=== PATIENT | male | born 1940 | race Caucasian/White ===

== ENCOUNTER 2016-12-13 14:42 | Emergency (ER) | payer MEDICARE, MEDICAID ==
[~2016-12-13] VITALS: Ht 177.8 cm; Wt 80.0 kg
[~2016-12-13 14:42] MED LIST: EYE DROP2; MIRALAX3350 N1 PO; NEXIUM20 M1 PO; PREVACID30 M1; SYNTHROID PO; VIAGRA25 MG PO
[2016-12-13] MEDS ORDERED: GLAUCOMA GTTS (15:06)
[2016-12-13] MEDS ORDERED: TRAMADOL HYDROC50 MG PO (15:33)
[2016-12-13] MEDS ORDERED: EC-NAPROSYN500 MG PO (15:33)
[2016-12-13 16:09] VITALS: BP 146/74
== END 2016-12-13 16:15 | disposition home or self-care (01) ==
LOC: ED 14:42
DX: M22.2X2 Patellofemoral disorders, left knee (principal); M25.562 Pain in left knee

== ENCOUNTER 2017-05-08 07:24 | Day surgery (SDC) | payer MEDICARE, MEDICAID ==
[~2017-05-08] VITALS: Ht 177.8 cm; Wt 79.8 kg
[~2017-05-08 07:24] MED LIST changes: +EC-NAPROSYN500 MG PO; -NEXIUM20 M1 PO; +NEXIUM40 M1 PO; +SAW PALMETTO450 MG PO; -SYNTHROID PO; +SYNTHROID100 MCG PO; +TRAMADOL HYDROC50 MG PO; +XALATAN0.005 % OD
[2017-05-08 11:58] VITALS: BP 182/82
== END 2017-05-08 11:35 | disposition home or self-care (01) ==
LOC: ORM 07:24
PROVIDERS: ATTEND Surgery
PROC: 03BS0ZX Excision of Right Temporal Artery, Open Approach, Diagnostic (ICD-10-PCS; principal; 2017-05-08)
DX: R51 Headache (principal); R79.82 Elevated C-reactive protein (CRP)

== ENCOUNTER 2017-08-19 10:56 | Emergency (ER) | payer MEDICARE, MEDICAID ==
[~2017-08-19] VITALS: Ht 177.8 cm; Wt 74.0 kg
[2017-08-19 15:41] VITALS: BP 142/82
== END 2017-08-19 15:40 | disposition home or self-care (01) ==
LOC: ED 10:56
DX: S00.93XA Contusion of unspecified part of head, initial encounter (principal); S70.02XA Contusion of left hip, initial encounter; S40.211A Abrasion of right shoulder, initial encounter; S60.417A Abrasion of left little finger, initial encounter; W01.0XXA Fall on same level from slipping, tripping and stumbling without subsequent striking against object, initial encounter; Y92.009 Unspecified place in unspecified non-institutional (private) residence as the place of occurrence of the external cause

== ENCOUNTER 2018-02-06 08:29 | Emergency (ER) | payer MEDICARE, MEDICAID ==
[~2018-02-06] VITALS: Ht 177.8 cm; Wt 90.0 kg
[2018-02-06 09:30] VITALS: BP 163/90
== END 2018-02-06 09:30 | disposition home or self-care (01) ==
LOC: ED 08:29
DX: L76.21 Postprocedural hemorrhage of skin and subcutaneous tissue following a dermatologic procedure (principal)

== ENCOUNTER 2018-02-12 11:57 | Emergency (ER) | payer MEDICARE, MEDICAID ==
[~2018-02-12] VITALS: Ht 177.8 cm; Wt 75.0 kg
[2018-02-12 12:26] VITALS: BP 122/66
== END 2018-02-12 12:30 | disposition home or self-care (01) ==
LOC: ED 11:57
DX: L76.31 Postprocedural hematoma of skin and subcutaneous tissue following a dermatologic procedure (principal)

== ENCOUNTER 2018-07-03 16:57 | Emergency (ER) | payer MEDICARE, MEDICAID ==
[~2018-07-03] VITALS: Ht 177.8 cm; Wt 70.0 kg
[2018-07-03 18:00] VITALS: BP 196/84
== END 2018-07-03 18:58 | disposition home or self-care (01) ==
LOC: ED 16:57
PROC: 0HQ1XZZ Repair Face Skin, External Approach (ICD-10-PCS; principal; 2018-07-03)
DX: S01.81XA Laceration without foreign body of other part of head, initial encounter (principal); S00.81XA Abrasion of other part of head, initial encounter; S60.512A Abrasion of left hand, initial encounter; S60.511A Abrasion of right hand, initial encounter; W01.0XXA Fall on same level from slipping, tripping and stumbling without subsequent striking against object, initial encounter; Y93.01 Activity, walking, marching and hiking; Y92.414 Local residential or business street as the place of occurrence of the external cause; R22.0 Localized swelling, mass and lump, head

== ENCOUNTER 2018-07-04 18:44 | Emergency (ER) | payer MEDICARE, MEDICAID ==
[~2018-07-04] VITALS: Ht 177.8 cm; Wt 74.2 kg
[2018-07-04 19:40] VITALS: BP 166/81
== END 2018-07-04 19:40 | disposition home or self-care (01) ==
LOC: ED 18:44
DX: S01.81XD Laceration without foreign body of other part of head, subsequent encounter (principal); S00.81XD Abrasion of other part of head, subsequent encounter; S60.512D Abrasion of left hand, subsequent encounter; S60.511D Abrasion of right hand, subsequent encounter

== ENCOUNTER 2018-07-14 11:15 | Emergency (ER) | payer MEDICARE, MEDICAID ==
[~2018-07-14] VITALS: Ht 177.8 cm; Wt 90.0 kg
[2018-07-14 12:05] VITALS: BP 166/78
== END 2018-07-14 12:05 | disposition home or self-care (01) ==
LOC: ED 11:15
DX: S01.81XD Laceration without foreign body of other part of head, subsequent encounter (principal)

== ENCOUNTER 2019-11-20 22:41 | Observation (INO) | payer MEDICARE, MEDICAID ==
[~2019-11-20] VITALS: Ht 180.3 cm; Wt 71.7 kg
--- NOTE | 2019-11-20 22:45 | NUR ---
PT RESTING. STATES THAT HE FEELS FINE. NO C/O AT PRESENT. TRIAGED IN ROOM AFTER ARRIVING BY EMS
--- NOTE | 2019-11-20 23:08 | NUR ---
DR AT BEDSIDE. DAUGHTER AT BEDSIDE.
--- NOTE | 2019-11-20 23:25 | NUR ---
LABS DRAWN/CXR COMPLETED. BS 104
[2019-11-20] MEDS ORDERED: QUETIAPINE FUMA25 MG PO (23:30)
--- NOTE | 2019-11-20 23:32 | NUR ---
TO CT VIA STRETCHER.
[2019-11-20 23:33] LABS: HEMATOCRIT 36.1 % (39.0-50.0); HEMOGLOBIN 11.9 g/dl (14.0-18.0); IMMATURE GRANULOCYTES 0.8 % (0.0-5.0); MEAN CELL VOLUME 92.1 fL CALC (80.0-100.0); MEAN CORPUSCULAR HGB 30.4 pG CALC (26.0-32.0); NEUT# 3.41 thou/uL (1.82-7.42); RED BLOOD COUNT 3.92 mill/uL (4.70-6.10); RED CELL DISTRI WIDTH 13.7 % (11.5-15.5)
--- NOTE | 2019-11-20 23:50 | NUR ---
RETURNED FROM CT
[2019-11-20 23:51] LABS: ALBUMIN 4.3 g/dL (3.2-5.0); ALKALINE PHOSPHATASE 64 u/l (38-126); ANION GAP 12 (6-22 (CALC)); BUN 16 mg/dL (8-23); BUN/CREATININE RATIO 16 (12-20 (CALC)); CARBON DIOXIDE 25 mmol/l (22-30); CHLORIDE 104 mmol/l (95-108); GFR > 60 ML/MIN (>=60 (CALC)); GFR FOR AFR.AMER. > 60 ML/MIN (>=60 (CALC)); SGOT/AST 23 u/l (19-48); SODIUM 137 mmol/l (137-146); TOTAL PROTEIN 7.4 g/dL (6.3-8.2)
[2019-11-20 23:52] LABS: BILIRUBIN, TOTAL 0.4 mg/dL (0.0-1.4)
[2019-11-21 00:03] LABS: MYOGLOBIN 151 ng/mL (0 - 121)
--- NOTE | 2019-11-21 00:10 | NUR ---
PT VOIDED 400 CC'S OF CLEAR AMI URINE IN URININAL.
--- NOTE | 2019-11-21 00:16 | NUR ---
URINE SENT TO LAB.
[2019-11-21 00:19] LABS: URINE BILIRUBIN - DIPSTICK NEGATIVE (NEGATIVE); URINE BLOOD DIPSTICK NEGATIVE (NEGATIVE); URINE COLOR YELLOW; URINE GLUCOSE - DIPSTICK NEGATIVE (NEGATIVE); URINE KETONE NEGATIVE (NEGATIVE); URINE LEUK ESTERASE NEGATIVE (NEGATIVE); URINE NITRITE - DIPSTICK NEGATIVE (Negative); URINE PROTEIN - DIPSTICK NEGATIVE (NEG-TRACE); URINE SPECIFIC GRAVITY 1.015; URINE UROBILINOGEN - DIPSTICK 0.2 E.U./dL (0.2)
--- NOTE | 2019-11-21 01:02 | NUR ---
ATTEMPTED TO CALL REPORT. NURSE WILL CALL BACK.
--- NOTE | 2019-11-21 01:12 | NUR ---
REPORT TO JÚNIOR KONG. MED SURG
--- NOTE | 2019-11-21 01:25 | NUR ---
PT TO FLOOR WITH POCKET MONITOR. DAUGHTER WENT HOME...NO VISITORS PER COVID-19 PROTOCAL. PT SHORTS/UNDERWEAR/2 PAIR OF SUNGLASSES AND WALLET HOME WITH DAUGHTER. UPON ARRIVAL TO FLOOR PT AMBULATED A FEW FEET TO BED. STATES USES A WALKER AT HOME.
[2019-11-21 01:30] VITALS: BP 178/73
--- NOTE | 2019-11-21 01:45 | NUR ---
ADVISED DR THAT LAST BP WAS 166/77. HOLD THE CLONIDINE.
--- NOTE | 2019-11-21 01:57 | NUR ---
[id number]- PT. ARRIVED TO THE FLOOR VIA STRETCHER ACCOMPANIED BY ER NURSE, JÚNIOR BRENNAN. PT. ABLE TO AMBULATE TO BED FROM STRETCHER. ORIENTED TO ROOM, CALL LIGHT, AND POC; VERBALIZES UNDERSTANDING. PT. IS ALERT TO NAME AND PLACE AND ABLE TO FOLLOW COMMANDS. PT. IS ABLE ONLY ANSWER MINIMAL QUESTIONS IN REGARDS TO PMH AND IS VAGUE ON SOMETHINGS; RECALLED PMH FROM PREVIOUS VISITS. PT. IS ABLE TO MOVE ALL EXTREMETIES. TELEMETRY IN PLACE. B/P ELEVATED AT 178/73 WITH HR 60, NOTIFIED DR. PETTY AND NEW ORDERS RECEIVED AND TO BE CARRIED OUT. BED ALARM IS SET FOR SAFETY. JANA HOSE APPLIED TO BLE. ENCOURAGED TO CALL FOR ANY NEEDS. SNACK PROVIDED.
[2019-11-21 02:42] VITALS: BP 164/75
[2019-11-21 03:55] VITALS: BP 145/61; BP 157/76
--- NOTE | 2019-11-21 04:39 | NUR ---
RESTING IN BED WITH EYES CLOSED; RESP. EVEN AND UNLABORED. BED ALARM ON. CALL LIGHT IS IN REACH.
[2019-11-21 08:00] VITALS: BP 138/74
--- NOTE | 2019-11-21 08:00 | NUR ---
PT SITTING IN BED WATCHING TV. PT ALERT TO SELF AND PLACE, UNABLE TO RECALL . NO PAIN OR NEEDS AT THIS TIME. ASSESSMENT COMPLETED. DISCUSSED POC, REINFORCEMENT NEEDED. CALL LIGHT IN REACH. CONTINUE TO MONITOR.
[2019-11-21 12:00] VITALS: BP 112/61
--- NOTE | 2019-11-21 12:45 | NUR ---
PT SITTING IN BED EATING LUNCH. NO NEEDS AT THIS TIME. CONTINUE TO MONITOR.
[2019-11-21 16:00] VITALS: BP 164/83
--- NOTE | 2019-11-21 17:35 | NUR ---
DISCUSSED D/C INSTRUCTIONS. IV INTACT UPON REMOVAL.
--- NOTE | 2019-11-21 18:09 | NUR ---
Discharge instructions given. Patient verbalizes understanding of same. Discharged in stable condition via Wheelchair to Home with staff. All belongings sent with pt.
== END 2019-11-21 18:09 | disposition home or self-care (01) ==
LOC: ED 22:41 → ED-I 22:53 → ED 11-21 00:45 → MS2 11-21 00:46
PROVIDERS: Emergency Medicine; ADMIT Internal Medicine; ATTEND Internal Medicine
DX: R41.0 Disorientation, unspecified (principal); R44.3 Hallucinations, unspecified; G25.1 Drug-induced tremor; T43.595A Adverse effect of other antipsychotics and neuroleptics, initial encounter; G30.9 Alzheimer's disease, unspecified; F02.80 Dementia in other diseases classified elsewhere, unspecified severity, without behavioral disturbance, psychotic disturbance, mood disturbance, and anxiety; E03.9 Hypothyroidism, unspecified
CPT/HCPCS: G0378